=== PATIENT | male | born 1990 | race American Indian/Alaskan Native ===

== ENCOUNTER 2016-11-12 02:03 | Emergency (ER) | payer OTHER ==
[2016-11-12 02:22] VITALS: BP 118/78
== END 2016-11-12 02:17 | disposition left against medical advice (07) ==
LOC: ED 02:03
DX: R05 Cough (principal); R51 Headache; Z53.21 Procedure and treatment not carried out due to patient leaving prior to being seen by health care provider
CPT/HCPCS: 93005; 93010

== ENCOUNTER 2016-11-14 12:13 | Emergency (ER) | payer OTHER ==
[2016-11-14 12:40] VITALS: BP 132/84
[2016-11-14] MEDS ORDERED: BOOSTRIX IM ONE (16:24)
[2016-11-14] MEDS ORDERED: AUGMENTIN 875 MG PO ONE (16:24)
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
--- NOTE | 2016-11-14 17:21 | Cat Scan Report ---
FINAL REPORT PROCEDURE: CT FACIAL BONES WO CON TECHNIQUE: Computerized tomography of the facial bones and soft tissues with axial and coronal sections performed from the cranial aspect of the frontal sinuses to the caudal portion of the mandible without contrast material. HISTORY: bruising, swelling, tenderness COMPARISON: No prior studies are available for comparison. FINDINGS: Mild mucosal thickening is seen in the paranasal sinuses. There is soft tissue swelling and air in the left nasolabial fold. Soft tissue swelling is seen in the jaw. No nasal bone fracture is seen. The globes appear symmetric. No postseptal swelling is seen. No orbital or mandible fracture is seen. IMPRESSION: No facial bone fracture is seen. There is subcutaneous edema and air in the left nasal labial fold and soft tissue swelling in the jaw.
== END 2016-11-14 18:27 | disposition home or self-care (01) ==
LOC: ED 12:13
DX: S01.511A Laceration without foreign body of lip, initial encounter (principal); S00.33XA Contusion of nose, initial encounter; V89.2XXA Person injured in unspecified motor-vehicle accident, traffic, initial encounter; Y93.89 Activity, other specified; Y92.89 Other specified places as the place of occurrence of the external cause; Y99.8 Other external cause status
CPT/HCPCS: 70486; 90471; 90715; 99283